=== PATIENT | male | born 1965 | race Caucasian/White ===

== ENCOUNTER 2025-02-14 09:32 | Emergency (ER) | payer BC, SELFPAY ==
[2025-02-14 10:07] VITALS: BP 172/95; PULSE 61; RESP 16; TEMP 36.5; O2SAT 100
--- NOTE | 2025-02-14 10:42 | ED_ITS ---
HPI - Headache General Chief Complaint: Unspecified Stated Complaint: high blood pressure patient presents to the [facility] care accompanied by spouse with complaints of elevated blood pressures. Noted spouse has been checking blood pressure at home watching her blood pressure so they decided to start taking his blood pressure noticed this was significantly high. Patient does report 2 days ago did have his yearly eye exam and did not find any abnormalities. Patient denies chest pain, shortness of breath, dizziness, vision changes, blurry vision, heart fluttering. Related Data Allergies Allergy/AdvReac Type Severity Reaction Status Date / Time No Known Allergies Allergy Verified 02/14/25 10:26 Review of Systems Constitutional: Constitutional: Reports as per HPI, Denies chills, Denies fatigue, Denies fever(s) and Denies weakness Eyes: Eyes: Reports no additional eye complaints ENT: Reports system reviewed and no additional complaints, except as documented Cardiovascular: Cardiovascular: Reports as per HPI, Denies chest pain, Denies rapid heart rate, Denies radiating jaw, neck or arm pain and Denies slow heart rate Respiratory: Respiratory: Reports as per HPI, Denies chest congestion, Denies cough, Denies dyspnea and Denies wheezing Gastrointestinal: Gastrointestinal: Reports no additional gastrointestinal complaints Genitourinary: Genitourinary: Reports no additional male genitourinary complaints Musculoskeletal: Musculoskeletal: Reports no additional musculoskeletal complaints Integumentary/Breasts: Skin/Breast: Reports system reviewed and no additional complaints, except as docu Neurologic: Reports as per HPI, Denies vertigo, Denies headache(s), Denies numbness and Denies weakness Psychiatric: Psychiatric: Reports no additional psychiatric complaints Endocrine: Endocrine: Reports no additional endocrine complaints Hematologic/Lymphatic: Hematologic/Lymphatic: Reports no additional hematologic/lymphatic complaints Allergic/Immunologic: Allergic/Immunologic: Reports no additional allergic/immunologic complaints Exam Const: General: healthy appearing and no acute distress Nutritional Appearance: well nourished Orientation/consciousness: patient oriented x3 Limitations: no limitations Eyes: Conjunctivae: conjunctivae normal Pupils: Equal, round and reactive pupils present EOM: EOMs intact bilaterally Direct Ophthalmoscopy: no photophobia Resp: Effort & Inspection: normal respiratory effort Auscultation: clear to auscultation bilaterally Cardio: Rate: regular rate Rhythm: regular rhythm Skin: General skin exam: normal color Rashes: no rashes Wounds: no wounds Neuro: General: patient oriented x3 Speech: normal speech Gait exam (Neuro): Normal gait present Extrem: General: normal to inspection, no clubbing, cyanosis or edema and no pedal edema Psych: Mental Status: mental status grossly normal Affect: normal affect Attitude: cooperative Course Course Level of Care: Express Care Visit Vital Signs Vital signs: Vital Signs Temperature 97.7 F 02/14/25 10:07 Pulse Rate 61 02/14/25 10:07 Respiratory Rate 16 02/14/25 10:07 Blood Pressure 172/95 H 02/14/25 10:07 Pulse Oximetry 100 02/14/25 10:07 Temperature 97.7 F 02/14/25 10:07 Pulse Rate 61 02/14/25 10:07 Respiratory Rate 16 02/14/25 10:07 Blood Pressure 172/95 H 02/14/25 10:07 Pulse Oximetry 100 02/14/25 10:07 MDM - Headache MDM Narrative Medical decision making narrative: long discussion with patient about blood pressure management, measuring blood pressures at home and dash diet. At this time given patient's blood pressure log and today's blood pressure will start on lisinopril. Educated patient to continue monitoring blood pressure at home and follow up within the next 2 weeks with primary care The patient was evaluated by myself in the [facility] care. History is obtained from patient who is an independent historian and physical exam was performed. Available medical records were reviewed at this time. Exam findings show no acute concerns or changes; patient is non-toxic appearing and is in no distress. Patient is appropriate for outpatient treatment and follow-up. I have evaluated and discussed social determinants of health with the patient that could potentially impact subsequent diagnosis and treatment plans. Differential diagnosis and treatment plan were discussed with the patient. Patient agrees with discussion and after shared medical decision making agrees with plan of care. All questions were answered to the patient's satisfaction. Differential Diagnosis Differential diagnosis: Likely migraine, tension headache, subarachnoid hemorrhage, meningitis, sinusitis and other ( hypertension) Medical Records Attestation: I reviewed the patient's medical records. Discharge Plan Discharge Clinical Impression: Elevated blood pressure reading Patient Disposition: Home Condition: Stable Instructions: Antibiotic Form, DASH Eating Plan (ED), Hypertension (ED) Additional Instructions: call your primary care physician Sunday for a follow-up appointment within 2-4 weeks. Given your blood pressure logs in today's blood pressure we will start you on a medication called lisinopril. Ensure to continue to take your blood pressures twice daily until follow-up with primary care physician if you notice a dry cough after starting this medication call your primary care physician they may want to change your medication. If you notice tongue swelling, lip swelling, or shortness of breath go to the emergency room as soon as possible. If you notice heart fluttering, chest pain, shortness of breath, significant headache, dizziness, or blurry /vision changes go to the emergency room for evaluation of blood pressure Patient Language: Kazakh Prescriptions: New lisinopril 5 mg tablet 5 mg PO DAILY Qty: 30 0RF Follow-up/Referrals: Ian Garcia [Other] Time of Disposition: 10:46
== END 2025-02-14 10:51 | disposition home or self-care (01) ==
PROVIDERS: Emergency Provider Nurse Practitioner Family
DX: R03.0 Elevated blood-pressure reading, without diagnosis of hypertension (principal)
CPT/HCPCS: 99203; G0463